=== PATIENT | female | born 1935 | race Caucasian/White ===

== ENCOUNTER 2017-02-05 06:51 | Inpatient (IN) | payer MEDICARE ==
--- NOTE | 2017-01-23 16:18 | HP ---
HISTORY AND PHYSICAL: DATE OF OFFICE VISIT: 01/23/17 DATE OF SURGERY: 02/05/17 SURGEON: Katerin Moreno MD * (DICTATED BY ETELVINA MARTIN) PROCEDURE: Left total knee arthroplasty. CHIEF COMPLAINT: Left knee pain. HISTORY OF PRESENT ILLNESS: Ms. Ingram is an 81-year-old female with complaints of left knee pain secondary to advanced osteoarthritis. She has failed conservative management and has elected to proceed with a left total knee arthroplasty, which is scheduled for 02/05/[address] Moreno. PAST MEDICAL HISTORY: History of breast cancer, high cholesterol, scleroderma, basal cell carcinoma of the face, stress incontinence, and vitamin B12 deficiency. PAST SURGICAL HISTORY: Left-sided mastectomy and right carpal tunnel release. CURRENT MEDICATIONS: 1. Naproxen 500 mg twice a day as needed. 2. Pravastatin sodium 20 mg once a day. 3. Anastrozole 1 mg daily. 4. Vitamin B12. 5. Fish oil. 6. Multivitamin. 7. Vitamin B12 injection. 8. Colace. ALLERGIES: ULTRAM, which causes nausea and vomiting. FAMILY HISTORY: Cancer. SOCIAL HISTORY: An 81-year-old lady, lives alone. She does not smoke or use drugs. She uses occasional alcohol. REVIEW OF SYSTEMS: A complete 14-point review of systems was reviewed with the patient. It is all negative or noncontributory. PHYSICAL EXAMINATION GENERAL: She is well-developed, well-nourished, in no acute distress. VITAL SIGNS: She stands 5 feet 4 inches tall, weighs 190 pounds. Blood pressure 130/72, heart rate 87. HEENT: Normocephalic, atraumatic. NECK: Supple. No palpable lymph nodes. PULMONARY: Lungs are clear to auscultation bilaterally. CARDIO: Regular rate and rhythm. Strong S1, S2. ABDOMEN: Soft, nontender, nondistended. MUSCULOSKELETAL: Left lower extremity, skin is intact. There is no open wounds or abrasions. She has a mild joint effusion. Some tenderness over the medial and lateral joint line. No varus or valgus instability. Her lower extremity muscle group strengths are intact at 5/5. She has 2+ dorsalis pedis pulses. She has intact sensation. ASSESSMENT AND PLAN: Ms. Ingram is an 81-year-old female with complaints of left knee pain secondary to advanced osteoarthritis. She has failed conservative management and has elected to proceed with a left total knee arthroplasty, which is scheduled for 02/05/[address] Moreno discussed the risks and benefits of the surgery at today's visit and all of her questions were answered. Coumadin, Percocet, and Colace were sent to her pharmacy for postoperative pain control and DVT prophylaxis. She will see Dr. Moreno back 2 weeks after the surgery. ETELVINA MARTIN [id number]/[facility] #: [id number] [facility] HOSPITALRosanna
[~2017-02-05 06:51] MED LIST: Buffered Lidocaine 0.9% SYRIN* 5 ML/SYR SYRINGE INTRADERM ONE; Dexamethasone IV* 4 MG/ML 1 ML (4 MG) IV SLOW PU ONE; Famotidine IV* 10 MG/ML 2 ML (20 mg) IV ONE
[2017-02-05] MEDS ORDERED: Famotidine IV* 10 MG/ML 2 ML (20 mg) ONE ×2 (06:55→07:22)
[2017-02-05] MEDS ORDERED: Dexamethasone IV* 4 MG/ML 1 ML (4 MG) ONE ×2 (06:55→07:22)
[2017-02-05] MEDS ORDERED: Buffered Lidocaine 0.9% SYRIN* 5 ML/SYR SYRINGE ONE (06:55)
[2017-02-05] MEDS ORDERED: ceFAZolin 2 GM PREMIX (*) 0 ML IVPB ONE (06:56)
[2017-02-05] MEDS ORDERED: ceFAZolin 2 GM PREMIX (*) 50 ML IVPB ONE (07:22)
[2017-02-05] MEDS ORDERED: Phenylephrine INJ* 10 MG/ML 1 ML VIAL (10 MG) ONE (07:45)
[2017-02-05] MEDS ORDERED: Propofol* 10 MG/ML 20 ML BTL IV PUSH ONE (07:47)
[2017-02-05] MEDS ORDERED: Ondansetron INJ* 2 MG/ML VIAL ONE (07:47)
[2017-02-05] MEDS ORDERED: Midazolam* 1 MG/ML 5 ML VIAL (5 MG) ONE (07:47)
[2017-02-05] MEDS ORDERED: EPHEDrine (Pressors)* 50 MG/ML VIAL ONE (07:47)
[2017-02-05] MEDS ORDERED: Morphine PF AMP (0.5MG/ML)* 5 MG/10 ML AMP ONE (07:47)
[2017-02-05] MEDS ORDERED: KETAMINE HCL* 50 MG/ML 10 ML VIAL ONE (07:47)
[2017-02-05] MEDS ORDERED: Bupivacaine 0.5% SDV PF* 30 ML VIAL ONE (08:03)
[2017-02-05] MEDS ORDERED: Lidocaine 2% PF * 5 ML VIAL ONE (08:30)
[2017-02-05] MEDS ORDERED: Scopolomine PATCH Remove* 1 NOTE MISC PATCH OFF PRN (09:00)
[2017-02-05] MEDS ORDERED: Naloxone* 0.4 MG/ML 1 ML VIAL IV PRN (09:00)
[2017-02-05] MEDS ORDERED: Scopolamine 1.5 mg* PATCH TRANSDERM PRN (09:00)
[2017-02-05] MEDS ORDERED: DiMENhydriNATE IV* 50 MG/ML VIAL IV PUSH PRN (09:00)
[2017-02-05] MEDS ORDERED: Nalbuphine* 20 MG/ML 1 ML VIAL IV PRN ×2 (09:00)
[2017-02-05] MEDS ORDERED: fentaNYL* 50 MCG/ML 2 ML VIAL (100 MCG VIAL) IV PRN (09:00)
[2017-02-05] MEDS ORDERED: Lactated Ringers 500 ml BAG* 500 ML IV PRN (09:00)
[2017-02-05] MEDS ORDERED: Ondansetron INJ* 2 MG/ML VIAL IV PRN (09:00)
[2017-02-05] MEDS ORDERED: Ropivacaine* 300 MG in NS 0.9% 250 ML* 240 ML EPIDURAL SCH (09:00)
[2017-02-05] MEDS ORDERED: oxyCODONE/Acetamin 5/325 MG* TAB PO PRN ×2 (09:00)
[2017-02-05] MEDS ORDERED: Midazolam* 1 MG/ML 2 ML VIAL (2 MG) ONE (09:25)
[2017-02-05] MEDS ORDERED: Polyethylene Glycol 3350* 17 GM PACKET PO PRN (11:07)
[2017-02-05] MEDS ORDERED: Ondansetron TAB* 4 MG PO PRN (11:07)
[2017-02-05] MEDS ORDERED: diPHENhydraMINE IV* 50 MG/ML 1 ml VIAL (BENADRYL) IV PRN (11:07)
[2017-02-05] MEDS ORDERED: Bisacodyl SUPP* 10 MG SUPP PR PRN (11:07)
[2017-02-05] MEDS ORDERED: Morphine INJ* 2 MG/ML 1 ML SYRINGE IV PRN (11:07)
[2017-02-05] MEDS ORDERED: Nalbuphine* 20 MG/ML 1 ML VIAL ONE (11:27)
--- NOTE | 2017-02-05 12:01 | RAD ---
INDICATION: Status post total left knee replacement surgery. COMPARISON: Comparison is made with a prior x-ray study of the left knee from November 28, 2016. TECHNIQUE: 2 views of the left knee were obtained. FINDINGS: The patient is status post total left knee replacement surgery. The bones and prostheses are in normal alignment. There is a surgical drain present anterior to the distal femur. IMPRESSION: STATUS POST TOTAL LEFT KNEE REPLACEMENT SURGERY.
[2017-02-05] MEDS ORDERED: DiMENhydriNATE IV* 50 MG/ML VIAL ONE (12:41)
[2017-02-05] MEDS: ceFAZolin 1 GM VIAL(*) 1 GM in NS 0.9% 50 ML* 50 ML IVPB SCH (16:59)
[2017-02-05] MEDS ORDERED: Warfarin TAB(*) 6 MG PO ONE ×2 (17:00→21:00)
[2017-02-05] MEDS ORDERED: CMCS - Anastrozole (NF) 1 MG TAB PO SCH (18:00)
[2017-02-05] MEDS: Atorvastatin* 10 MG TAB PO SCH (21:33)
[2017-02-05] MEDS: Docusate CAP* 100 MG PO SCH (21:33)
[2017-02-06] MEDS: Ondansetron INJ* 2 MG/ML VIAL IV PRN ×2 (00:35→09:01)
[2017-02-06] MEDS: ceFAZolin 1 GM VIAL(*) 1 GM in NS 0.9% 50 ML* 50 ML IVPB SCH ×2 (00:37→08:23)
--- NOTE | 2017-02-06 05:41 | OP ---
DATE OF SURGERY: 02/05/17 - ROOM #348 DATE OF : 35. ATTENDING SURGEON: Katerin Moreno MD. INSTRUCTIONAL SUPPORT TECHNICIAN: ETELVINA Winchester. Ms. Vidales did help throughout the procedure with preparation of the leg, wound retraction, manipulation of the knee, and wound closure. ANESTHESIOLOGIST: Dr. Zee. ANESTHESIA TYPE: Spinal. PRE-OP DIAGNOSIS: Severe end-stage degenerative osteoarthritis of the left knee joint with valgus deformity. POST-OP DIAGNOSIS: Severe end-stage degenerative osteoarthritis of the left knee joint with valgus deformity. OPERATIVE PROCEDURE: Left total knee arthroplasty. TOURNIQUET TIME: 66 minutes. COMPLICATIONS: None. ESTIMATED BLOOD LOSS: 200 cc. SPECIMENS: Bone and cartilage from the left knee joint sent to Pathology. HARDWARE USED: This is cemented [employer] total knee hardware. Two packages of Simplex bone cement were used. For the femur, a left size 5 posterior stabilized Legion femoral component. For the tibia, a left size 5 tibial baseplate. For the insert, a 9-mm size 5/6 posterior stabilized articular insert. For the patella, a 32-mm 7.5 thickness 3-peg all poly patella. BRIEF HISTORY/INDICATIONS: Ms. Ingram is an 81-year-old female with several years of increasing severe left knee pain and valgus deformity. She failed conservative treatment with antiinflammatories, pain medication, intraarticular injections, and physical therapy. Due to continued severe pain and decreased quality of life, she elected to undergo a left total knee arthroplasty. Informed consent was obtained from the patient. She understood the risks of the procedure included, but were not limited to bleeding, infection, damage to nearby structures, continued pain, need for further surgery, intraoperative fracture, nerve palsy, hardware failure or loosening, knee stiffness, loss of motion, stroke, heart attack, blood clot, and . She wished to proceed. INTRAOPERATIVE FINDINGS: Intraoperatively, the patient was noted to have 10- degree flexion contraction of the as well as a 15-degree valgus deformity. This was corrected to 5 degrees of valgus alignment and full extension by the end of the case. She had severe loss of cartilage in the lateral and patellofemoral compartments. Lateral femoral condylar hypoplasia was noted. DESCRIPTION OF PROCEDURE: Ms. Ingram was identified in the preanesthesia unit. Her left lower extremity was marked as the correct operative side. Informed consent was signed and placed in the chart. The patient was taken to the operating room and placed under spinal anesthesia without difficulty. A Hughes catheter was placed. Tourniquet was placed on the left thigh. The left lower extremity was prepped and draped in the usual sterile fashion. Preop time-out was made to correctly identify the patient's side and site. Appropriate perioperative antibiotics were given within one hour of incision. Tourniquet was inflated and total tourniquet time for this procedure was 66 minutes. A 14-cm midline incision was made with a 10-blade and carried down to the extensor mechanism. A new 10-blade was used to make a standard medial parapatellar arthrotomy. Patella subluxed laterally. Electrocautery was used to subperiosteally elevate soft tissue off the superomedial tibia to the mid sagittal plane. The knee was flexed up. The anterior horn of the lateral meniscus and ACL were sharply released. A drill was used to enter the distal femur. Intramedullary distal femoral cutting guide was placed and pinned down the distal femur. The lateral femoral condylar hypoplasia was noted and encountered for. Oscillating saw was used to make distal femoral cut. Next, the external rotation guide was carefully pinned on the distal femur and the distal femur was sized to a size 5. A size 5 multi-cutting jig was pinned on the distal femur. Oscillating saw was used to make the appropriate 4 chamfer cuts. The PCL was completely released. The tibia was subluxed anteriorly. Extramedullary tibial cutting guide was pinned down the proximal tibia. Oscillating saw was used to make the proximal tibial cut perpendicular to the mechanical axis of the tibia. The bone was carefully removed. The knee was brought out into full extension. There was some slight lateral tightness when comparing ligamentous balancing. A 15 blade was used to perform minimal pie crusting and electro-cautery was used to release capsule along the posterolateral tibia. The knee was brought back out into full extension and the spacer block had good fit. There was good medial and lateral balancing. Flexion and extension gaps were well balanced. The knee was flexed up. [employer] wildlife biostation research ecologist was placed both medially and laterally. Any remaining meniscus were carefully removed using electrocautery. Curved osteotome was used to remove any posterior osteophytes. Tibial tray and drop mahi were placed to once again confirm satisfactory proximal tibial cut. This was confirmed. A trial left size 5 femoral component was impacted onto the distal femur and had good fit. The box for the posterior stabilized implant was prepared using a reamer and box cut osteotome. Trial tibial tray size 5 within the 9-mm insert trial was placed, and the knee was taken through a range of motion. The knee had full extension to 130 degrees of flexion with satisfactory patellofemoral tracking. The patella was everted. A 7 mm of patellar bone and cartilage was carefully removed using an oscillating saw. The patella was sized to a size 32, and the three peg holes were drilled through the size 32 guide. A 7.5-thickness size 32 trial patella was placed and the knee was taken through a range of motion. Patellofemoral tracking was satisfactory. All trials were carefully removed. The tibia was subluxed anteriorly and sized to a size 5. The proximal tibia was prepared using a size 5 keel punch. All bony cut surfaces were copiously irrigated with sterile saline and dried. The final implants were cemented into place starting with the tibia, followed by the femur, and last the patella. A 9- mm insert trial was placed while the knee was brought out into full extension. Tourniquet was turned down at 66 minutes. Cement was allowed to slowly cure and the knee was copiously irrigated with sterile saline. Once the cement had fully cured, the insert trial was removed. Any excess cement was carefully removed from around the implant and capsule. Electrocautery was used to obtain meticulous hemostasis. Final insert chosen was a 9-mm posterior stabilized articular insert. This was locked into position on the tibial tray. The stability of the insert was checked and rechecked and noted to be stable. The knee was copiously irrigated with sterile saline. Extensor mechanism was closed using interrupted #1 Vicryls over a medium Hemovac drain. The rest of the incision was closed in a layered fashion using 0 and 2-0 Vicryls. Skin was closed using running 3-0 nylon suture. Sterile Xeroform, 4x4s, and Webril were used to cover the incision. Saul wrap and cold packs were placed over this. The patient's anesthesia was reversed without difficulty. She was taken to the PACU in stable condition. Intended weightbearing will be weightbearing as tolerated. Intended DVT prophylaxis will be Coumadin with a Lovenox bridge. [id number]/[facility] #: [id number] ALFIE
[2017-02-06] MEDS ORDERED: oxyCODONE/Acetamin 5/325 MG* TAB PO PRN (06:00)
[2017-02-06 06:43] LABS: Hematocrit 34 % (35-47); Hemoglobin 11.6 g/dl (12.0-16.0)
[2017-02-06 06:57] LABS: BUN/Creatinine Ratio 17.6 (8-20); EGFR African American 96.9 (>60); EGFR Non-African American 75.3 (>60); Potassium 4.1 mmol/L (3.5-5.0)
[2017-02-06] MEDS: Docusate CAP* 100 MG PO SCH ×2 (08:24→19:54)
--- NOTE | 2017-02-06 09:08 | PN ---
Progress Note - Progress Note Date of Service: 02/06/17 SOAP: Subjective: []Patient seen at bedside. Vomited last night and still feels nauseous. Pain currently minimal in left knee. Cryotherapy on . Denies SOB, dizziness. Objective: [] Vital Signs Temp 98.7 F 02/06/17 07:15 Pulse 80 02/06/17 07:15 Resp 18 02/06/17 07:29 BP 107/42 02/06/17 07:15 Pulse Ox 97 02/06/17 07:15 Intake & Output 02/05/17 02/06/17 02/06/17 18:59 06:59 18:59 Intake Total 2160 2520 225 Output Total 950 600 Balance 1210 1920 225 Weight 188 lb Intake: IV Fluids 2100 920 LR 2100 920 Oral 60 1600 225 Output: Hughes 875 600 Emesis 75 Laboratory Results - last 24 hr 02/06/17 02/06/17 02/06/17 06:30 06:30 06:30 Hgb 11.6 L Hct 34 L INR (Anticoag Therapy) 1.04 Sodium 139 Potassium 4.1 Chloride 103 Carbon Dioxide 29 Anion Gap 7 BUN 13 Creatinine 0.74 Est GFR ( Amer) 96.9 Est GFR (Non-Af Amer) 75.3 BUN/Creatinine Ratio 17.6 Glucose 129 H Calcium 9.0 Left knee hemovac drain discontinued without complications, tip intact calf NT + DF/PF left ankle sensation and circulation intact distally Assessment: []s/p left total knee arthroplasty, POD #1 Plan: []PT/OT WBAT LLE Coumadin with Lovenox bridge- 8 mg today Consider changing pain meds if vomiting continues
[2017-02-06] MEDS ORDERED: Scopolomine PATCH Remove* 1 NOTE MISC PATCH OFF SCH (10:00)
[2017-02-06] MEDS ORDERED: Scopolamine 1.5 mg* PATCH TRANSDERM SCH (10:00)
[2017-02-06] MEDS: oxyCODONE/Acetamin 5/325 MG* TAB PO PRN ×2 (10:04→13:07)
[2017-02-06] MEDS ORDERED: Enoxaparin(*) 30 MG/0.3 ML SYR SUBCUT SCH (12:00)
[2017-02-06] MEDS: oxyCODONE TAB* 5 MG TAB PO PRN ×2 (16:56→23:28)
[2017-02-06] MEDS ORDERED: Warfarin TAB(*) 4 MG PO ONE (17:00)
[2017-02-06] MEDS: Magnesium Hydroxide LIQ* 30 ML UDC PO PRN (19:54)
[2017-02-06] MEDS: Atorvastatin* 10 MG TAB PO SCH (19:54)
[2017-02-06] MEDS: CMCS - Anastrozole (NF) 1 MG TAB PO SCH (23:29)
[2017-02-07] MEDS: oxyCODONE TAB* 5 MG TAB PO PRN (05:00)
[2017-02-07 06:54] LABS: Hematocrit 32 % (35-47); Hemoglobin 11.2 g/dl (12.0-16.0)
[2017-02-07] MEDS: oxyCODONE/Acetamin 5/325 MG* TAB PO PRN ×2 (08:36→12:53)
[2017-02-07] MEDS: Docusate CAP* 100 MG PO SCH ×2 (08:36→20:32)
[2017-02-07] MEDS: Magnesium Hydroxide LIQ* 30 ML UDC PO PRN (08:36)
--- NOTE | 2017-02-07 09:27 | PN ---
Progress Note - Progress Note Date of Service: 02/07/17 SOAP: Subjective: []Patient seen OOB in chair, c/o some mild nausea, no vomiting today. Scopolamine patch has helped some. c/o moderate left knee pain. Objective: [] Vital Signs Temp 98.5 F 02/07/17 07:59 Pulse 84 02/07/17 07:19 Resp 16 02/07/17 08:36 BP 120/49 02/07/17 07:19 Pulse Ox 96 02/07/17 08:00 Intake & Output 02/06/17 02/07/17 02/07/17 18:59 06:59 18:59 Intake Total 3112 1000 360 Output Total 275 900 Balance 2837 100 360 Intake: IV Fluids 1807 LR 1697 abx 110 Oral 1305 1000 360 Output: Urine 900 Hughes 125 Emesis 150 Other: Estimated Void Medium Small # Bowel Movements 0 # Voids 1 2 Laboratory Results - last 24 hr 02/07/17 02/07/17 06:34 06:34 Hgb 11.2 L Hct 32 L INR (Anticoag Therapy) 2.01 H Left knee dressings changed, wound benign new 4x4s and YAYA applied calf NT and soft +DF/PF left ankle Assessment: []s/p LTK POD #2 Plan: []PT/OT WBAT LLE d/c Lovenox, Coumadin 2 mg today Discharge home with VNS 02/08
[2017-02-07] MEDS ORDERED: Warfarin TAB(*) 2 MG PO ONE (17:00)
[2017-02-07] MEDS: Acetaminophen TAB* 325 MG PO PRN (17:51)
[2017-02-07] MEDS: Atorvastatin* 10 MG TAB PO SCH (20:32)
[2017-02-07] MEDS: CMCS - Anastrozole (NF) 1 MG TAB PO SCH (20:32)
[2017-02-08] MEDS: Acetaminophen TAB* 325 MG PO PRN ×2 (06:28→15:36)
[2017-02-08] MEDS: Docusate CAP* 100 MG PO SCH (08:02)
[2017-02-08 08:12] LABS: Hematocrit 33 % (35-47); Hemoglobin 11.4 g/dl (12.0-16.0)
--- NOTE | 2017-02-08 10:11 | PN ---
Progress Note - Progress Note Date of Service: 02/08/17 SOAP: Subjective: []Patient seen OOB in chair. Feeling better, had a BM this am. She is ready to go home this afternoon when her ride is available. Objective: [] Vital Signs Temp 99.3 F 02/08/17 07:36 Pulse 100 02/08/17 07:36 Resp 18 02/08/17 07:36 BP 120/50 02/08/17 07:36 Pulse Ox 95 02/08/17 07:36 Intake & Output 02/07/17 02/08/17 02/08/17 18:59 06:59 18:59 Intake Total 760 585 Output Total 0 0 Balance 760 585 Intake: Oral 760 585 Output: Urine 0 0 Other: Estimated Void Large Medium # Bowel Movements 0 # Voids 1 2 Laboratory Results - last 24 hr 02/08/17 02/08/17 07:18 07:18 Hgb 11.4 L Hct 33 L INR (Anticoag Therapy) 2.76 H Left knee incision benign calf NT and soft +DF/PF left ankle calf NT and soft Assessment: []s/p LTK POD #3 Plan: []PT WBAT LLE Hold Coumadin today Discharge home this afternoon, follow up with Dr. Moreno as scheduled in 10-14 days.
[2017-02-08 15:27] VITALS: BP 123/53
--- NOTE | 2017-02-09 01:44 | DS ---
DISCHARGE SUMMARY: DATE OF ADMISSION: 02/05/17 DATE OF DISCHARGE: 02/08/17 ATTENDING PHYSICIAN: Dr. Katerin Moreno * (DICTATED BY ETELVINA BO) ADMISSION DIAGNOSIS: Severe end-stage degenerative osteoarthritis of the left knee joint with valgus deformity. DISCHARGE DIAGNOSIS: Severe end-stage degenerative osteoarthritis of the left knee joint with valgus deformity. SURGERY PERFORMED: Left total knee arthroplasty. HOSPITAL COURSE: The patient is an 81-year-old female with several years of increasing severe left knee pain with valgus deformity. The patient failed conservative management with anti-inflammatories, pain medication and intraarticular cortisone injections as well as physical therapy. Due to her increased pain and decreased quality of life, she elected to proceed with the above surgical procedure on the 05 of February. She was taken to the operating room under the care of Dr. Katerin Moreno and tolerated the procedure well, leaving the operating room in stable condition. Postoperatively, she had some difficulties with nausea and vomiting postoperative day #1, this was likely due to the Duramorph from her anesthesia. She did receive a scopolamine patch which did give her relief of her symptoms and she had no further issues and tolerated the Percocet pain medication. She progressed satisfactorily with her physical therapy and occupational therapy goals and had no other postoperative problems. It was felt she was stable medically and orthopedically for discharge to home on the date of 02/08/17. CONDITION ON DISCHARGE: Her vital signs show temp of 99.3, pulse 100, respiratory rate 18, O2 sats 95 on room air, blood pressure 120/50. Her left knee incision is healing without evidence of infection. There is no drainage. Her calf is soft and nontender. She has full dorsiflexion and plantar flexion of her left ankle. PLAN: Discharge to home later this afternoon. She will continue to bear weight as tolerated on the left lower extremity. We will hold on Coumadin today as her INR is 2.76. I have instructed her to take no Coumadin on Friday 02/09 and take 2 mg of Coumadin on Saturday 02/10. She will have repeat INR blood draw on 02/11/17. She will continue to work on her physical therapy exercises, bearing weight as tolerated on the left lower extremity. She will follow up with Dr. Moreno in the office in roughly 10 to 14 days as scheduled. She is instructed to call the office for increased knee pain, any drainage, redness, increased swelling, calf pain or swelling, fever or chills. All questions were answered and she understands. ETELVINA BO [id number]/[facility] #: [id number] ALFIE
[2017-02-09] MEDS ORDERED: Scopolomine PATCH Remove* 1 NOTE MISC PATCH OFF SCH (09:59)
== END 2017-02-08 16:03 | disposition home health service (06) | DRG 470 ==
LOC: AA 06:51 → SSU 12:56
PROVIDERS: ADMIT Orthopaedic Surgery Adult Reconstructive Orthopaedic Surgery; ATTEND Orthopaedic Surgery Adult Reconstructive Orthopaedic Surgery
PROC: 0SRD0J9 Replacement of Left Knee Joint with Synthetic Substitute, Cemented, Open Approach (ICD-10-PCS; principal; 2017-02-05 08:15)
DX: M17.12 Unilateral primary osteoarthritis, left knee (principal); M34.9 Systemic sclerosis, unspecified; E78.00 Pure hypercholesterolemia, unspecified; M21.062 Valgus deformity, not elsewhere classified, left knee; T88.59XA Other complications of anesthesia, initial encounter; T41.3X5A Adverse effect of local anesthetics, initial encounter; R11.2 Nausea with vomiting, unspecified; M25.762 Osteophyte, left knee; Z85.3 Personal history of malignant neoplasm of breast; Z90.12 Acquired absence of left breast and nipple; Z85.828 Personal history of other malignant neoplasm of skin; Z88.6 Allergy status to analgesic agent; Z72.89 Other problems related to lifestyle
CPT/HCPCS: 36415; 80048; 85014; 85018; 85610; 94760; A9270-GY; C1776; J0690; J1100; J1240; J1650; J2250; J2270; J2300; J2405; J2704; J2795